=== PATIENT | male | born 1975 | race Caucasian/White ===

== ENCOUNTER 2017-12-16 16:12 | Outpatient (CLI) | payer OTHER ==
--- NOTE | 2017-12-17 06:53 | MRI Report ---
EXAM: MRI CERVICAL SPINE WITHOUT CONTRAST EXAM DATE: 12/16/2017 05:11 PM. CLINICAL HISTORY: Cervicalgia. COMPARISONS: None. TECHNIQUE: Multiplanar, multisequence T1-weighted and fluid-sensitive sequences of the cervical spine without contrast. Other: None. FINDINGS: Neurologic Structures: The visualized posterior fossa structures are unremarkable. No signal abnormal ity in the visualized spinal cord. Alignment: There is no spondylolisthesis. Bone Marrow: No gross fractures or bone lesions. No marrow edema. Interspace Levels/Facets: C1-C2: Unremarkable. C2-C3: Unremarkable. C3-C4: Unremarkable. C4-C5: Mild left foraminal narrowing is present due to uncovertebral hypertrophy. The spinal canal an d right foramen are patent. C5-C6: Mild left foraminal narrowing is present due to uncovertebral hypertrophy. The spinal canal an d right foramen are patent. C6-C7: Unremarkable. C7-T1: Unremarkable. Musculature: Normal. No edema or fatty atrophy. Other: The paravertebral and prevertebral soft tissues are normal. IMPRESSION: 1. Normal cervical spinal cord signal intensity without impingement. 2. Mild left foraminal narrowing at C4-C5 and C5-C6. [facility] Referring Provider Line: [phone] SITE ID: [id number]
== END 2017-12-16 16:13 | disposition home or self-care (01) ==
LOC: DI 16:12
PROVIDERS: ATTEND General Practice
DX: M47.892 Other spondylosis, cervical region (principal)
CPT/HCPCS: 72141